=== PATIENT | male | born 1955 | race Caucasian/White ===

== ENCOUNTER 2018-12-16 14:17 | Inpatient (IN) | payer MEDICAID, SELFPAY ==
[~2018-12-16] VITALS: Ht 188 cm; Wt 79.4 kg
[2018-12-17] MEDS ORDERED: FOLIC ACID 1 MG, THIAMINE HCL 100 MG, MVI, ADULT NO.1 10 ML in DEXTROSE 5% WATER 1,000 ML IV NR ×4 (00:15)
[2018-12-17 01:14] LABS: BASOPHILS % 0.9 % (0.0-2.0); EOSINOPHILS % 2.1 % (0.0-5.0); HEMATOCRIT. 46.6 % (42.0-52.0); HEMOGLOBIN. 15.9 g/dL (14.0-18.0); LYMPHOCYTES % 23.7 % (20.0-50.0); MEAN CORPUSCULAR HEMOGLOBIN 34.5 pg (28.0-32.0); MEAN PLATELET VOLUME 8.3 fl (7.4-10.4); NEUTROPHILS % 63.3 % (40.0-76.0); PLATELET 317 x1000/uL (130-400); RED BLOOD CELL COUNT 4.62 mill/uL (4.7-6.1)
[2018-12-17 01:18] LABS: CHLORIDE 102 mEq/L (98-107)
[2018-12-17 01:24] LABS: ETHANOL BLOOD < 10 mg/dL
[2018-12-17 01:47] LABS: *AMPHETAMINES SCREEN URINE NEGATIVE (NEGATIVE)
[2018-12-17 01:48] LABS: *BARBITURATES SCREEN URINE NEGATIVE (NEGATIVE); *COCAINE SCREEN URINE NEGATIVE (NEGATIVE); METHADONE URINE SCREEN NEGATIVE (NEGATIVE); OPIATES URINE SCREEN NEGATIVE (NEGATIVE); PHENCYCLIDINE URINE SCREEN NEGATIVE (NEGATIVE)
[2018-12-17 01:49] LABS: *BENZODIAZEPINES SCREEN URINE NEGATIVE (NEGATIVE); CANNABINOID URINE SCREEN NEGATIVE (NEGATIVE)
[2018-12-17] MEDS ORDERED: CLONIDINE 0.1MG TABLET PO PRN (07:00)
[2018-12-17] MEDS ORDERED: ACETAMINOPHEN 325MG TABLET PO PRN (07:00)
[2018-12-17] MEDS ORDERED: ONDANSETRON HCL 4MG/2ML INJ IV PRN (07:00)
[2018-12-17] MEDS ORDERED: DIPHENHYDRAMINE 50MG/ML VIAL IV PRN (07:00)
[2018-12-17] MEDS ORDERED: IPRATROPIUM/ALBUTEROL 0.5-3(2.5)MG/3ML NEB INH PRN (07:00)
[2018-12-17] MEDS ORDERED: GUAIFENESIN 200MG/10ML SUGAR FREE UDC PO PRN (07:00)
[2018-12-17] MEDS ORDERED: LORAZEPAM 2MG/ML CPJ IV PRN (07:00)
[2018-12-17] MEDS ORDERED: MAGNESIUM/ALUMINUM HYDROXIDE/SIMETHICONE 30ML UDC PO PRN (07:00)
[2018-12-17 08:00] VITALS: BP 145/87
[2018-12-17] MEDS ORDERED: INFLUENZA VIRUS VACCINE(AFLURIA) 0.5ML SYR IM ONE (10:15)
[2018-12-17 10:16] LABS: VITAMIN B12 SERUM 891 pg/mL (211-911)
[2018-12-17 10:30] VITALS: BP 145/87
[2018-12-17 12:00] VITALS: BP 145/87
[2018-12-17] MEDS: METOPROLOL TARTRATE 50MG TABLET PO SCH ×2 (12:47→21:23)
[2018-12-17] MEDS: SODIUM CHLORIDE 0.9% 1,000 ML IV SCH (14:57)
[2018-12-17 16:00] VITALS: BP 141/85
[2018-12-17 18:30] LABS: T4 FREE 1.44 ng/dL (0.76-1.46)
[2018-12-17 18:40] LABS: FOLIC ACID (FOLATE) SERUM 16.8 ng/mL (>5.38)
[2018-12-17 20:00] VITALS: BP 125/78
[2018-12-17] MEDS ORDERED: MVI, ADULT NO.1 10 ML, FOLIC ACID 1 MG, THIAMINE HCL 100 MG in SODIUM CHLORIDE 0.9% 1,0... IV SCH ×4 (21:00)
[2018-12-18] VITALS: BP 127/54
[2018-12-18 04:00] VITALS: BP 139/80
[2018-12-18 08:00] VITALS: BP 115/80
[2018-12-18] MEDS: METOPROLOL TARTRATE 50MG TABLET PO SCH ×2 (08:19→20:45)
[2018-12-18] MEDS: THIAMINE HCL 100MG TABLET PO SCH (08:19)
[2018-12-18 12:00] VITALS: BP 124/69
[2018-12-18] MEDS: SODIUM CHLORIDE 0.9% 1,000 ML IV SCH (12:40)
[2018-12-18 16:00] VITALS: BP 130/77
[2018-12-18 20:00] VITALS: BP 137/73
[2018-12-19] VITALS: BP 154/74
[2018-12-19] MEDS: SODIUM CHLORIDE 0.9% 1,000 ML IV SCH ×2 (02:15→15:59)
[2018-12-19 04:00] VITALS: BP 113/68
[2018-12-19 08:00] VITALS: BP 138/82
[2018-12-19] MEDS: THIAMINE HCL 100MG TABLET PO SCH (08:48)
[2018-12-19] MEDS: METOPROLOL TARTRATE 50MG TABLET PO SCH ×2 (08:49→20:19)
[2018-12-19 11:53] VITALS: BP 145/79
[2018-12-19 15:36] VITALS: BP 144/80
[2018-12-19 20:00] VITALS: BP 166/101
[2018-12-20] VITALS: BP 152/83
[2018-12-20 04:00] VITALS: BP 129/69
[2018-12-20 08:00] VITALS: BP 127/78
[2018-12-20] MEDS: METOPROLOL TARTRATE 50MG TABLET PO SCH ×2 (08:47→20:45)
[2018-12-20] MEDS: THIAMINE HCL 100MG TABLET PO SCH (08:47)
[2018-12-20 12:00] VITALS: BP 111/68
[2018-12-20 16:00] VITALS: BP 111/70
[2018-12-20 20:00] VITALS: BP 133/77
[2018-12-21] VITALS: BP 126/85
[2018-12-21 04:00] VITALS: BP 113/75
[2018-12-21 08:00] VITALS: BP 123/86
[2018-12-21] MEDS: THIAMINE HCL 100MG TABLET PO SCH (08:43)
[2018-12-21] MEDS: METOPROLOL TARTRATE 50MG TABLET PO SCH (08:43)
[2018-12-21 10:46] LABS: BASOPHILS % 1.1 % (0.0-2.0); EOSINOPHILS % 6.8 % (0.0-5.0); HEMOGLOBIN. 14.1 g/dL (14.0-18.0); LYMPHOCYTES % 30.1 % (20.0-50.0); MEAN CORPUSCULAR HEMOGLOBIN 33.1 pg (28.0-32.0); MEAN CORPUSCULAR VOLUME 100.9 fL (80.0-94.0); MEAN PLATELET VOLUME 8.6 fl (7.4-10.4); MONOCYTES % 11.4 % (2.0-8.0); NEUTROPHILS % 50.6 % (40.0-76.0); PLATELET 286 x1000/uL (130-400); RED BLOOD CELL COUNT 4.26 mill/uL (4.7-6.1); RED CELL DISTRIBUTION WIDTH 13.1 % (11.6-14.6)
[2018-12-21 11:25] LABS: CHLORIDE 104 mEq/L (98-107)
[2018-12-21 11:36] LABS: TOTAL IRON BINDING CAPACITY 320 ug/dL (250-450)
[2018-12-21 11:37] LABS: LDL CHOLESTEROL 122 mg/dL (5-100)
[2018-12-21 11:38] LABS: HDL CHOLESTEROL 32 mg/dL (40-59)
[2018-12-21 12:00] VITALS: BP 117/79
[2018-12-21 12:16] LABS: PROSTRATE SPECIFIC AG TOTAL 0.63 ng/mL (0.0-4.0)
[2018-12-21] MEDS ORDERED: MAGNESIUM HYDROXIDE 400MG/5ML 30ML UDC PO PRN (13:45)
[2018-12-21 16:00] VITALS: BP 144/85
[2018-12-21 20:00] VITALS: BP 116/76
[2018-12-21] MEDS: METOPROLOL TARTRATE 25MG TABLET PO SCH (21:21)
[2018-12-22] VITALS: BP 130/79
[2018-12-22 04:00] VITALS: BP 120/66
[2018-12-22 08:00] VITALS: BP 130/79
[2018-12-22] MEDS: DOCUSATE SODIUM 250MG CAPSULE PO SCH (08:58)
[2018-12-22] MEDS: THIAMINE HCL 100MG TABLET PO SCH (09:00)
[2018-12-22] MEDS: METOPROLOL TARTRATE 25MG TABLET PO SCH ×2 (09:00→21:00)
[2018-12-22 12:00] VITALS: BP 106/73
[2018-12-22 16:00] VITALS: BP 115/84
[2018-12-22 20:00] VITALS: BP 104/73
[2018-12-23] VITALS: BP 132/78
[2018-12-23 08:00] VITALS: BP 123/80
[2018-12-23] MEDS: METOPROLOL TARTRATE 25MG TABLET PO SCH ×2 (08:38→20:42)
[2018-12-23] MEDS: THIAMINE HCL 100MG TABLET PO SCH (08:38)
[2018-12-23] MEDS: DOCUSATE SODIUM 250MG CAPSULE PO SCH (09:00)
[2018-12-23 12:00] VITALS: BP 132/76
[2018-12-23 16:00] VITALS: BP 143/83
[2018-12-23 18:25] VITALS: BP 143/83
[2018-12-23 20:00] VITALS: BP 164/94
[2018-12-26 08:14] LABS: 25-HYDROXY VITAMIN D3 19 ng/mL (.)
== END 2018-12-23 21:35 | DRG 48 ==
LOC: ER 14:17 → 6EST 12-17 03:51 → EDBEDREQ 12-17 03:54 → EDBEDREQTM 12-17 03:54 → EDBEDREQSVC 12-17 03:54 → ENRESERV 12-17 07:15
PROVIDERS: ADMIT Internal Medicine; ATTEND Internal Medicine
DX: G62.9 Polyneuropathy, unspecified (principal); G82.20 Paraplegia, unspecified; R65.10 Systemic inflammatory response syndrome (SIRS) of non-infectious origin without acute organ dysfunction; M48.02 Spinal stenosis, cervical region; M48.061 Spinal stenosis, lumbar region without neurogenic claudication; F10.20 Alcohol dependence, uncomplicated; D72.829 Elevated white blood cell count, unspecified; I10 Essential (primary) hypertension; W18.39XA Other fall on same level, initial encounter; Y93.89 Activity, other specified; Y92.009 Unspecified place in unspecified non-institutional (private) residence as the place of occurrence of the external cause; Y99.8 Other external cause status; Z87.891 Personal history of nicotine dependence; F44.9 Dissociative and conversion disorder, unspecified
CPT/HCPCS: 36415; 70551; 71045; 72141; 72146; 72148; 80061; 80305; 80320; 82140; 82306; 82550; 82607; 82728; 82746; 83036; 83540; 83550; 83735; 84100; 84153; 84439; 84443; 84481; 90471; 90686; 93005; 93970; 96365; 97163; 97166; 97530; 99285; J3411; J3490; J7030; J7070; G0103; G0480